=== PATIENT | male | born 1945 | race Caucasian/White ===

== ENCOUNTER → 2017-01-11 | Outpatient (CLI) | payer OTHER ==
[~2017-01-11] MED LIST: HYZ/10015 PO
[2017-01-11 09:43] LABS: BASO % 0.4 %; BASO ABS # 0.02 K/uL (0-0.2); COMPLETE YES; EOS % 2.2 %; HEMATOCRIT 46.1 % (42-52); IG% 0.2 %; LYMPH % 18.2 %; MEAN CELL VOLUME 83.5 fL (80-100); MEAN CORPUSCULAR HEMOGLOBIN 27.9 pg (25-34); MEAN CORPUSCULAR HGB CONC 33.4 g/dl (32-36); MEAN PLATELET VOLUME 10.2 fL (7.4-10.4); MONO % 8.8 %; NEUT % 70.2 %; PLATELET COUNT 203 K/uL (130-400); RED BLOOD COUNT 5.52 M/uL (4.7-6.1); WHITE BLOOD COUNT 5.48 K/uL (4.8-10.8)
[2017-01-11 10:24] LABS: ALT/SGPT 29 U/L (12-78); BLOOD UREA NITROGEN 15 mg/dl (7-18); BUN/CREATININE RATIO 11.8 (10-20); CALCIUM 9.3 mg/dl (8.5-10.1); CARBON DIOXIDE 29 mmol/L (21-32); CHLORIDE 105 mmol/L (98-107); CHOLESTEROL 158 mg/dl (0-200); GLUCOSE 84 mg/dl (70-99); POTASSIUM 3.5 mmol/L (3.5-5.1); SODIUM 141 mmol/L (136-145); TRIGLYCERIDES 52 mg/dl (0-150); VERY LOW DENSITY LIPOPROT CALC 10 mg/dl
[2017-01-11 10:29] LABS: ALKALINE PHOSPHATASE 80 U/L (45-117); AST/SGOT 17 U/L (15-37); CHOLESTEROL/HDL RATIO 3.2; HDL CHOLESTEROL 49 mg/dl; LDL CHOLESTEROL CALCULATED 99 mg/dl
== END | disposition home or self-care (01) ==
LOC: C.LAB1850 08:27
PROVIDERS: ATTEND Internal Medicine Pulmonary Disease
DX: Z00.00 Encounter for general adult medical examination without abnormal findings (principal); J30.9 Allergic rhinitis, unspecified; N40.0 Benign prostatic hyperplasia without lower urinary tract symptoms

== ENCOUNTER → 2018-02-24 | Outpatient (CLI) | payer OTHER ==
--- NOTE | 2018-02-24 09:26 | DIAGNOSTIC IMAGING REPORT ---
R HIP UNILATERAL MIN 2 VIEWS CLINICAL HISTORY: 72 years-old Male presenting with RIGHT BUTTOCK PAIN. TECHNIQUE: Frontal and frog-leg lateral views of the right hip were obtained. COMPARISON: None. FINDINGS: Right hip joint congruent. Chondrocalcinosis may be present. No acute fracture or malalignment. Visualized portion of the bony pelvis intact. No advanced degenerative change. No radiographic soft tissue abnormality. IMPRESSION: No acute osseous injury or advanced degenerative changes of the right hip. Electronically signed by: Pradeep Diez M.D. 02/24/2018 9:24 AM Dictated Date/Time: 02/24/2018 9:22 AM
--- NOTE | 2018-02-24 09:30 | DIAGNOSTIC IMAGING REPORT ---
LUMBAR SPINE 2 OR 3 VIEWS CLINICAL HISTORY: RIGHT BUTTOCK PAIN COMPARISON STUDY: None. FINDINGS: No fracture or subluxation within the lumbar spine. Mild disc space narrowing throughout the lumbar spine with small endplate osteophytes. Moderate facet osteoarthritis at L4-L5 and L5-S1. The sacrum is intact. IMPRESSION: 1. No fracture or subluxation within the lumbar spine. 2. Degenerative changes as described above. Electronically signed by: Rj Charles M.D. 02/24/2018 9:28 AM Dictated Date/Time: 02/24/2018 9:27 AM
== END | disposition home or self-care (01) ==
LOC: C.RDSM 09:10
PROVIDERS: ATTEND Internal Medicine
DX: M79.1 Myalgia (principal)

== ENCOUNTER 2020-03-21 10:06 | Observation (INO) ==
--- NOTE | 2020-03-14 15:48 | Anesthesiology Consultation ---
Date of Service March 14, 2020 Assessment & Plan (1) Visit for pre-operative examination: Chart Review Chart Review: Acceptable Risk for Surgery (pending 03/14 Covid testing ) and Patient NOT seen in Pre Admission Testing Per 03/14/20 nursing assessment, patient traveled to [place] to visit family- did not wear mask. Scheduled for Covid testing 03/17 per preop orders at [facility]. Seen by PCP 03/03/20= history of DVT January 2020- has been on AC for almost two months. He has no chest pain. He is active physically. His EKG is normal. He had a normal stress test in 2018. His blood pressure is under good control. He will need to be off of his Eliquis for 2 days prior to surgery. I will defer to his surgeon as to when anticoagulation can be restarted after surgery. He may have chronic venous insufficiency in his left lower extremity at this time. "From a general medical standpoint he is cleared for surgery." History Surgery Operation Date: 03/21/20 08:55 Proposed Procedures p Photoselective Vaporization of Prostate using Green Light Laser, - Crow Loera DO s Cystolithopaxy - Crow Loera, Height/Weight Height: 6 ft 1 in Weight: 90.718 kg Allergies Allergy/AdvReac Type Severity Reaction Status Date / Time No Known Drug Allergies Allergy Verified 03/14/20 08:34 Medications Home Medications Medication Instructions Recorded Confirmed Last Taken apixaban 5 mg tablet 5 mg PO BID #60 tab 02/15/20 03/14/20 Unknown finasteride 5 mg PO PM 03/14/20 03/14/20 Unknown losartan 100 mg PO QAM 03/14/20 03/14/20 Unknown tamsulosin 0.4 mg PO PM 03/14/20 03/14/20 Unknown Past Medical History Medical History (Updated 03/14/20 @ 15:57 by Sandee Pizarro PA-C) Acute deep vein thrombosis (DVT) of left lower extremity ON ELIQUIS> DECEMBER 2019> DUE TO SITTING ON LONG FLIGHT Amaurosis fugax Degeneration of cervical intervertebral disc Hearing loss History of BPH History of melanoma in situ REMOVED FROM HEAD 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 Hypertension Lumbar disc disease Positive PPD PT UNAWARE> DENIES HAVING THIS TEST- PER PCP NOTE- DISTANT HX OF POSITIVE PPD 1953- NEVER TREATED- NO ACTIVE DISEASE Seasonal allergies Slow to wake up after anesthesia Past Family History Family History Father Lung cancer Mother Hypertension Daughter History of kidney stones Past Surgical History Surgical History H/O colonoscopy (~2015) H/O lumbar discectomy History of tooth extraction WISDOM TEETH Hx of hernia repair S/P left knee arthroscopy X2 Social History Smoking Status: Never smoker Do You Dip or Chew Tobacco: No Hx Alcohol Use: Yes Alcohol type: beer, wine and hard liquor alcohol intake frequency: 0-2 drinks per day Alcohol Intake Frequency Comment: 1 DRINK PER DAY> TYPE VARIES Hx Substance Use: No substance use type: does not use Testing Laboratory Results Laboratory Tests 03/03/20 03/03/20 11:21 11:21 WBC 6.36 Hgb 14.5 Hct 44.8 Plt Count 202 Sodium 138 Potassium 4.0 Chloride 108 H Carbon Dioxide 27 BUN 19 H Creatinine 1.16 Glucose 111 H Electrocardiogram Date: 03/03/20 SR at 73 bpm. Chest X-Ray Date: 03/03/20 Findings: + NAD Stress Test Date: 11/07/17 Type: exercise (ECHO) Resting EF: 55 to 60% Resting LV Function: normal Valvular Disease: no significant valvular disease 11 METS achieved MPHR =99%. No ischemic EKG changes during stress. Occasional PVCs during stress. No stress-induced wall motion abnormalitiesnegative echoc ardiographic test for ischemia. LVH. Aortic root mildly dilated.
[~2020-03-21 10:06] MED LIST changes: +CIPROFLOXACIN / D5W 400 MG/200 ML BAG IV SCH; -HYZ/10015 PO; +LR 15ML/HR IV SCH
[2020-03-21] MEDS ORDERED: HYDROmorphone INJ 2 MG/ML SYR/VIAL IV PRN (11:07)
[2020-03-21] MEDS ORDERED: ONDANSETRON INJ 2 MG/ML 2 ML VIAL IV PRN (11:07)
[2020-03-21] MEDS ORDERED: ATROPINE SULFATE 0.1 MG/ML 10ML SYR IV PRN (11:07)
[2020-03-21] MEDS ORDERED: ePHEDrine sulfate 50 MG/ML AMP IV PRN (11:07)
[2020-03-21] MEDS ORDERED: MIDAZOLAM HCL 1 MG/ML 2ML VIAL ONE (11:11)
[2020-03-21] MEDS ORDERED: LIDOCAINE HCL 2% 2 ML VIAL/AMP(20MG/ML) INFIL ONE (11:11)
[2020-03-21] MEDS ORDERED: PROPOFOL IV EMULSION 10 MG/ML 20 ML VIAL IV ONE (11:11)
[2020-03-21] MEDS ORDERED: ONDANSETRON INJ 2 MG/ML 2 ML VIAL ONE (11:11)
[2020-03-21] MEDS ORDERED: fentaNYL citrate 100 MCG/2 ML VIAL ONE ×2 (11:11→12:56)
--- NOTE | 2020-03-21 11:34 | History & Physical Bridge Note ---
Date of Service March 21, 2020 History & Physical Bridge Note I have examined the patient, reviewed the History & Physical and in the interval since the performance of the History & Physical I have noted the following changes of clinical significance: no changes noted
--- NOTE | 2020-03-21 13:47 | Operative Report ---
PG Post Operative Report Pre & Post Diagnosis Operation Date: 03/21/20 11:25 Pre-Op Diagnosis: Benign Prostatic Hyperplasia, Bladder Stone Post-Op Diagnosis: Benign Prostatic Hyperplasia, Bladder Stone I identified the patient and participated in the time-out.: Yes Procedure Operation Date: 03/21/20 11:25 Actual Procedures p Photoselective Vaporization and enucleation of Prostate using Green Light Laser,(Not Applicable) - Crow Loera DO s Laser Cystolithopaxy(Not Applicable) - Crow Loera DO Surgeon Crow Loera, II, DO Plaster Machine Tender None Estimated Blood Loss 10 Findings Consistent with Post-Op Diagnosis Large Prostate with obstruction and bladder stones. Specimens Prostate adenoma. Bladder Stones Drains [address] 24Fr Catheter Anesthesia Type General Complications none Disposition Disposition: Recovery Room Indications Patient with obstruction due to prostate enlargement with bladder stones and gross hematuria. Risks and benefits discussed at length. Description of Procedure Patient was consented and brought back to the operating room. Patient was placed under anesthesia in the supine position and moved to the dorsal lithotomy position. Patient was prepped and draped in the regular sterile fashion. A time out was completed. A 30degree Cystoscope was placed into the bladder and the entire bladder was examined. The UO's were identified as well as the bladder neck, trigone, dome, and the other important landmarks. The prostatic urethra and large lobes/adenoma was assessed and the veru and bladder neck identified and area/size was assessed. The cystoscope with laser bridge and the Greenlight laser fiber were selected. Starting at the 5 and 7 o'clock positions, a channel was created from bladder neck to the veru. A channel was further formed between the two areas. No major bleeding or areas of concern. The resection then started at the 1 and 11 oclock positions and swept down to the channel. Adenoma pieces were enucleated and displaced into the bladder. All bleeding was controlled. The Specimen was removed and sent for analysis. The resection bed and any bleeding areas were fulgurated/cauterized and the entire area inspected. All bleeding was controlled. At this point, the greenlight laser was removed and the 1000 micron laser fiber was selected. There was approx 25 stones of various sizes up to 3 cm in size. These were pulverized to fragments and dust with the laser. Multiple times fragments were irrigated. These were all collected and sent for analysis. The entire area was inspected and the stone pieces were all removed. The bladder was inspected a final time. The bladder was emptied and irrigated. All specimen and debris was removed. The scope was removed with the bladder partially full. A catheter was placed and balloon elevated. This was easily irrigated. The patient was cleaned, aroused from anesthesia, and transferred to the pacu in stable condition having tolerated the procedure well with no complications. I was present and participated in all aspects of the procedure. The patient will be monitored in the PACU until transferred. I attest to the content of the Intraoperative Record and any orders documented therein. Any exceptions are noted below.
[2020-03-21] MEDS: fentaNYL citrate 100 MCG/2 ML VIAL IV PRN ×2 (14:15→14:20)
--- NOTE | 2020-03-21 15:12 | Anesthesiology Progress Note ---
Date of Service March 21, 2020 Anesthesia Post Procedure Vital Signs Vital Signs: Temp Pulse Pulse Resp BP BP Pulse Ox 03/21/20 15:05 36.5 C 62 18 168/84 H 96 03/21/20 14:45 36.1 C L 57 L 18 151/79 H 97 03/21/20 14:35 61 12 133/76 98 03/21/20 14:25 56 L 12 142/73 H 98 03/21/20 14:15 57 L 14 137/82 98 03/21/20 14:05 58 L 17 130/71 95 03/21/20 13:56 36.1 C L 65 20 117/81 97 03/21/20 10:30 36.8 C 79 20 178/95 H 99 Pain Intensity Lower Abdomen: Pain Intensity: 5 Transfer of Care Handoff Completed per policy Notes Mental Status: alert / awake / arousable and participated in evaluation Patient Amnestic to Procedure: Yes Nausea / Vomiting: adequately controlled Pain: adequately controlled Airway Patency, RR, SpO2: stable & adequate BP & HR: stable & adequate Hydration State: stable & adequate Anesthetic Complications: no major complications apparent and Pt Satisfied with anesthetic care
[2020-03-21] MEDS ORDERED: BELLADONNA/OPIUM SUPP 60 MG SUPP PR PRN (15:21)
[2020-03-21] MEDS: SODIUM CHLORIDE 0.9% 1000ML 1,000 ML IV SCH (15:37)
[2020-03-21 15:41] LABS: Basophils # (auto) 0.01 K/uL (0-0.2); Basophils % (auto) 0.2 %; Eosinophils # (auto) 0.04 K/uL (0-0.5); Eosinophils % (auto) 0.6 %; Hemoglobin 13.8 g/dL (14.0-18.0); Lymphocytes # (auto) 0.54 K/uL (1.2-3.4); Lymphocytes % (auto) 8.1 %; Mean Corpuscular Hemoglobin 27.8 pg (25-34); Mean Corpuscular Hgb Conc 32.1 g/dL (32-36); Mean Corpuscular Volume 86.5 fL (80-100); Mean Platelet Volume 9.7 fL (7.4-10.4); Monocytes # (auto) 0.33 K/uL (0.11-0.59); Neutrophils # (auto) 5.72 K/uL (1.4-6.5); Neutrophils % (auto) 86.1 %; Platelet Count 157 K/uL (130-400); RDW Coefficient of Variation 13.5 % (11.5-14.5); RDW Standard Deviation 42.9 fL (36.4-46.3); Red Blood Count 4.97 M/uL (4.7-6.1); White Blood Count 6.64 K/uL (4.8-10.8)
[2020-03-21 15:57] LABS: BUN Creatinine Ratio 16.1 (10-20); Calcium 8.8 mg/dl (8.5-10.1); Est GFR (African American) 76.5
[2020-03-21] MEDS: CEFAZOLIN 2000MG 2,000 MG/15 ML SYR IV SCH (16:46)
[2020-03-21] MEDS ORDERED: MoRPHine SULFATE 2 MG/ML CARP IV PRN (17:28)
[2020-03-21] MEDS ORDERED: OXYCODONE/APAP 7.5/325MG TAB PO PRN (17:28)
[2020-03-21] MEDS ORDERED: TAMSULOSIN HCL 0.4 MG CAP PO SCH (21:00)
[2020-03-21] MEDS ORDERED: FINASTERIDE 5 MG TAB PO SCH (21:00)
[2020-03-22] MEDS: CEFAZOLIN 2000MG 2,000 MG/15 ML SYR IV SCH ×2 (00:36→08:25)
[2020-03-22] MEDS: SODIUM CHLORIDE 0.9% 1000ML 1,000 ML IV SCH (04:12)
--- NOTE | 2020-03-22 08:53 | Urology Progress Note ---
Date of Service March 22, 2020 Assessment & Plan (1) Gross hematuria: Postop day 1 status post photo vaporization of prostate with enucleation and cystolitholapaxy for large burden of bladder stones. Patient is tolerating catheter well. Is tolerating diet. Is starting to ambulate. Will clamp CBI this morning. Plan will be to monitor. Patient is going to restart his blood thinner today. Will need to monitor closely. Also will start back all of his home medications. If patient continues to tolerate diet, increasing activity, medications, and continues to be clear without major clots or problems from the catheter we will plan to likely have patient discharge later today sometime in the afternoon. Will monitor closely. (2) Bladder stones: Subjective Postop day 1 from urologic surgery. Patient had photo vaporization of prostate with enucleation and cystolitholapaxy. Patient is on blood thinners due to an acute DVT. He is going to be restarted on them this morning. Patient has been tolerating well, but is having some pain and discomfort. Having some abdominal distension/gas pains. Has tolerated catheter. Has not had severe pain or uncontrollable pain. Patient has been ambulating. Has not had bowel movement or major change. No new nausea or vomiting. Had tolerated anesthesia without major problems Tolerated liquid diet postoperatively. Review of Systems Review of Systems: All systems reviewed & are unremarkable except as noted in HPI & below Physical Exam Physical Exam: General: Alert in no acute distress. HEENT: Normocephalic Atraumatic. Inspection normal. Cranial Nerves 2-12 Grossly intact. Normal inspection of face. Normal inspection of neck. Psychologic: Normal affect. Respiratory: Nonlabored. No use of accessory muscles. No tachypnea or dyspnea. Cardiovascular: No tachycardia Skin: [place] and Dry. No rashes or visible lesions. Extremities/Lymphatics: No edema Abdomen: Appropriately tender. Mild distended. No rebound or guarding. : Catheter in place draining clear urine with CBI on low. Results & Data Vital Signs (Past 12 Hours) Vital Signs Temp Pulse Resp BP Pulse Ox 03/22/20 07:20 36.8 C 78 16 160/74 H 94 03/22/20 03:02 36.6 C 74 16 149/71 H 94 03/21/20 23:43 36.7 C 73 16 164/79 H 93 PG Care Time/CCT Total # of Minutes Spent Total Time Spent with Patient: Total time spent is greater than 50% in coordination of care (as documented) at patient's floor/unit and/or counseling patient: Coding Level of Care Code 82981 Subseq Hosp Care Lvl 3 Diagnoses Gross hematuria R31.0 Bladder stones N21.0
[2020-03-22] MEDS ORDERED: LOSARTAN POTASSIUM 50 MG TAB PO SCH (09:00)
[2020-03-22] MEDS ORDERED: APIXABAN 5 MG TABLET PO SCH (09:00)
--- NOTE | 2020-03-23 16:16 | Discharge Summary ---
Date of Service March 23, 2020 Admission HPI Per Admitting Provider See H&P Admission Exam Per Admitting Provider See H&P Principal Diagnosis BPH with Gross hematuria and bladder stones. Discharge Exam General: Alert in no acute distress. HEENT: Normocephalic Atraumatic. Inspection normal. Psychologic: Normal affect. Skin: [place] and Dry. No rashes or visible lesions. Abdomen: Soft Non-distended. No rebound or guarding. Discharge Data Allergies Allergy/AdvReac Type Severity Reaction Status Date / Time No Known Drug Allergies Allergy Verified 03/21/20 10:21 Procedures Performed Operation Date: 03/21/20 11:25 Actual Procedures p Photoselective Vaporization of Prostate using Green Light Laser,(Not Applicable) - Crow Loera DO s Cystolithopaxy(Not Applicable) - Crow Loera, Hospital Course (1) Gross hematuria: Postop day 1 status post photo vaporization of prostate with enucleation and cystolitholapaxy for large burden of bladder stones. Patient is tolerating catheter well. Is tolerating diet. Is starting to ambulate. Will clamp CBI this morning. Plan will be to monitor. Patient is going to restart his blood thinner today. Will need to monitor closely. Also will start back all of his home medications. If patient continues to tolerate diet, increasing activity, medications, and continues to be clear without major clots or problems from the catheter we will plan to likely have patient discharge later today sometime in the afternoon. Will monitor closely. (2) Bladder stones: Total Time Total Time Spent Total Time Spent (In Minutes): 10 minutes Total Time Includes: Examination of the Patient, Discharge Planning, Medication Reconciliation and Communication With Other Providers Discharge Plan Discharge Items Patient Disposition: Home - Self-Care Reason For Visit: Benign Prostatic Hyperplasia, Bladder Stone Discharge Diagnosis: Same Activity: Resume your previous activity Lifting: No more than 50 pounds Non-emergency contact: Urologist Call non-emergency contact if: you have any medication questions, your symptoms worsen, your pain is not controlled, your pain is worsening, your pain is unus ual for you, your pain is concerning for you, you have a fever and your temperature is above 101.5 Follow-up/Referrals: Sumit Galan MD [Primary Care Provider] - Diet: Regular Addtl Attending Provider Instructions: Home with catheter. Office will call with followup. May have blood intermittently in urine. Call for any fevers or chills. Pending Studies at Discharge: No Stand-Alone Forms: My [facility], Smoking Cessation Medications and DC Order Prescriptions: New ciprofloxacin HCl [Cipro] 500 mg tablet 500 mg PO Q12H Qty: 6 RF: 0 oxycodone-acetaminophen [Percocet] 7.5-325 mg tablet 1 tab PO Q8H PRN (Reason: pain) Qty: 7 RF: 0 Continued Eliquis 5 mg tablet 5 mg PO BID Qty: 60 RF: 4 tamsulosin 0.4 mg capsule 0.4 mg PO PM RF: 0 losartan 100 mg tablet 100 mg PO QAM RF: 0 finasteride 5 mg tablet 5 mg PO PM RF: 0 Discharge Orders: Discharge Order (Routine); Ordered 03/22/20 Ordered By: Crow Wheeler/Other Patient Handouts: Discharge Instructions Caring for Your Leg Bag Admission Data Admit Date/Time: 03/21/20 14:08 Attending Provider: Crow Loera Admit Provider: Crow Loera Primary Care Provider: Sumit Galan Other Interventions: Discharge Summary Assessment (RN) Last Done: 03/22/20 16:12 DC Date/Time DO NOT enter until pt leaves facility: 03/22/20 17:00 Coding Level of Care Code D/C Day Management <30 mins Diagnoses Gross hematuria R31.0 Bladder stones N21.0
[2020-03-27 14:45] LABS: Component 2 DNR; Source BLADDER STONE
== END 2020-03-22 17:00 | disposition home or self-care (01) ==
LOC: ASU 10:06 → 3N 10:06

== ENCOUNTER 2021-04-20 12:02 | Observation (INO) ==
--- NOTE | 2021-03-24 15:57 | PAT Medication Instructions ---
Medication Instructions Date of Service March 24, 2021 Home Medications Medication Instructions Recorded losartan 100 mg tablet See Rx Instructions .ROUTE 04/19/20 .COMPLEX #90 tablet apixaban 5 mg tablet 5 mg PO BID #60 tab 03/22/21 losartan 100 mg tablet 1 tab DAILY apixaban 5 mg tablet 5 mg PO BID ASK your prescriber and surgeon apixaban 5 mg tablet 5 mg PO BID DO NOT take the morning of surgery losartan 100 mg tablet 1 tab DAILY NOTHING TO EAT OR DRINK AFTER MIDNIGHT. Other Notes If you have any questions please call us at [phone] or [phone] or [phone] or [phone]
--- NOTE | 2021-03-27 10:36 | Anesthesiology Consultation ---
Date of Service March 27, 2021 Assessment & Plan (1) Encounter for pre-operative examination: COVID Status: As of 03/27 assessment, patient denies travel to endemic area, known exposure/sick contacts, or symptoms of COVID19. Patient advised to adhere to social distancing guidelines, wear a mask in public and avoid large crowds or unnecessary travel in the 2 weeks leading up to surgery. Preoperative COVID19 testing to be completed prior to surgery per surgeon's arrangements. Pat ient encouraged to be extra cautious/conscientious with COVID precautions between COVID testing and surgery. Eliquis instructions per prescriber and surgeon. Chart Review Chart Review: Acceptable Risk for Surgery and Patient seen in Pre Admission Testing Teaching & Discussion Instructed NPO after midnight before surgery, except medications with 15 cc of water. Medication instructions provided according to the PAT guidelines. History Surgery Operation Date: 04/20/21 07:30 Proposed Procedures p Transurethral Resection Prostate - Crow Loera, Height/Weight Height: 6 ft 0.5 in Weight: 89.811 kg Allergies Allergy/AdvReac Type Severity Reaction Status Date / Time No Known Drug Allergies Allergy Verified 03/23/21 08:45 Medications Home Medications Medication Instructions Recorded Confirmed Last Taken losartan 100 mg tablet See Rx Instructions .ROUTE 04/19/20 03/23/21 Unknown .COMPLEX #90 tablet apixaban 5 mg tablet 5 mg PO BID #60 tab 03/22/21 03/23/21 Unknown Past Medical History Medical History Acute deep vein thrombosis (DVT) of left lower extremity ON ELIQUIS> DECEMBER 2019> DUE TO SITTING ON LONG FLIGHT PT STATES RECENLTY PUT BACK ON ELIQUIS D/T LEG PAIN/SWELLING AND ULTRASOUND CONFIRMED>FEBRUARY 2021 Degeneration of cervical intervertebral disc Hearing loss History of bladder stone History of BPH History of melanoma in situ REMOVED FROM HEAD 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 Hypertension Lumbar disc disease Positive PPD PT UNAWARE> DENIES HAVING THIS TEST- PER PCP NOTE- DISTANT HX OF POSITIVE PPD 1953- NEVER TREATED- NO ACTIVE DISEASE Seasonal allergies Exercise / Class Metabolic Activity II 4-5 Yardwork/Stairs/Walk up hill Past Family History Family History Father Lung cancer Mother Hypertension Daughter History of kidney stones Other No family history of adverse response to anesthesia Past Surgical History Surgical History H/O colonoscopy (~2015) H/O lumbar discectomy History of arthroscopy RT/LEFT KNEE History of cystoscopy Green Light Laser of prostate/bladder stone removal Hx of hernia repair INGUINAL Slow to wake up after anesthesia [place] teeth removed Past Anesthesia History No Hx of Anesthesia Complications and No Family Hx of Anesthesia Complications Pt reports being 'slow to wake' but denies unanticipated admission or reintubation. History of PONV No Hx of PONV and No Hx of Motion Sickness (but has had vertigo) Social History Smoking Status: Never smoker Do You Dip or Chew Tobacco: No Hx Alcohol Use: Yes Alcohol type: beer and wine alcohol intake frequency: a few times a week substance use type: does not use Review of Systems Pt denies any recent chest pain, shortness of breath, palpitations, cough, fever, URI, or uncontrolled acid reflux. Physical Exam Vital Signs BP: 143/73 P: 77bpm SPO2: 96% RA T: 97.8 F R: 16 ENMT Mouth: + dental restorations (few crowns); no chipped teeth and no loose teeth Thyromental Distance: < 3.5 Finger Breadths (3) Mallampati Class: I Neck normal visual inspection and + limited neck extension Respiratory normal respiratory effort, lungs clear to auscultation Cardiovascular RRR, no murmur, no edema Vessels: no carotid bruit Lab Results Anesthesia Preop Results Results Anesthesia Widget: WBC 4.88 K/uL (4.8-10.8) 03/27/21 Hgb 16.0 g/dL (14.0-18.0) 03/27/21 Hct 48.6 % (42-52) 03/27/21 Plt 203 K/uL (130-400) 03/27/21 Na 139 mmol/L (136-145) 03/27/21 K 3.7 mmol/L (3.5-5.1) 03/27/21 Cl 105 mmol/L (98-107) 03/27/21 CO2 30 mmol/L (21-32) 03/27/21 BUN 16 mg/dl (7-18) 03/27/21 Creat 1.28 mg/dl (0.6-1.4) 03/27/21 Glucose Level 109 mg/dl (70-99) H 03/27/21 Urine Color Yellow 03/27/21 Urine Appearance Clear (Clear) 03/27/21 Urine pH 5.0 (4.5-7.5) 03/27/21 Urine Specific [place] 1.010 (1.000-1.030) 03/27/21 Urine Protein Negative (Negative) 03/27/21 Urine Glucose (UA) Negative (Negative) 03/27/21 Urine Ketones Negative (Negative) 03/27/21 Urine Blood Negative (Negative) 03/27/21 Urine Nitrite Negative (Negative) 03/27/21 Urine Bilirubin Negative (Negative) 03/27/21 Urine Urobilinogen Negative (Negative) 03/27/21 Urine Leukocyte Esterase Negative (Negative) 03/27/21 Testing Electrocardiogram Date: 03/27/21 Findings: + NSR @ (68bpm) Nonspecific ST abnormality. Compared with EKG of 07/25/2007, no significant change was found. Chest X-Ray Date: 01/23/21 Findings: + NAD Stress Test Date: 11/07/17 Resting EF: 55-60% Normal LV size. Wall thickness is consistent with LVH. LV has normal systolic function. Normal RV size and function. The left atrium is normal. Mildly dilated aortic root. The ascending aorta is dilated at 4.3 cm. Normal diastolic function. Maximal stress test. No stress-induced chest pain. Negative EKG test for ischemia. There were stress-induced arrhythmias as described above (occ PVCs). LV global systolic function response to stress was normal. There was no stress-induced wall motion abnormality. This is a negative stress EKG/echocardiographic test for ischemia which would predict a low perioperative cardiac risk. Cervical Spine Date: 01/23/21 IMPRESSION: 1. No acute bony abnormality is seen involving the cervical spine. 2. Osteopenia and spondylotic change as above.
[~2021-04-20 12:02] MED LIST changes: -CIPROFLOXACIN / D5W 400 MG/200 ML BAG IV SCH; +ceFAZolin 2000MG 2,000 MG/15 ML SYR IV SCH
--- NOTE | 2021-04-20 14:17 | History & Physical Report ---
Date of Service April 20, 2021 Assessment & Plan (1) Enlarged prostate without lower urinary tract symptoms (luts): Plan: Bladder outlet obstruction. Risks and benefits discussed at length for procedure. These include bleeding, infection, injury to surrounding tissues or organs, and risks associated with anesthesia. Patient states understanding and agrees to proceed. Will sign consent and proceed. Plan for transurethral resection of prostate. Patient had DVT approx 2 months ago. Plan for minimal resection to remove obstruction. May need observation post op due to anticoagulation. History of Present Illness Primary Care Provider: Sumit Galan MD Patient here for procedure. No changes in medical issues. No major changes in urinary issues. Continued issues and concerns. No change in pain or discomfort. No severe fevers or chills. No chest pain or shortness of breath. Risks and benefits discussed at length for procedure. These include bleeding, infection, injury to surrounding tissues or organs, and risks associated with anesthesia. Patient and/or family states understanding and agrees to proceed. Consent and supporting information completed. Allergies Allergy/AdvReac Type Severity Reaction Status Date / Time No Known Drug Allergies Allergy Verified 04/20/21 12:27 Home Medications Medication Instructions Recorded Confirmed Type apixaban 5 mg tablet (Eliquis) 5 mg PO BID #60 tab 03/22/21 04/20/21 Rx losartan 100 mg tablet (Cozaar) 100 mg PO DAILY 04/20/21 04/20/21 History Past Med/Surg History Medical History Acute deep vein thrombosis (DVT) of left lower extremity ON ELIQUIS> DECEMBER 2019> DUE TO SITTING ON LONG FLIGHT PT STATES RECENLTY PUT BACK ON ELIQUIS D/T LEG PAIN/SWELLING AND ULTRASOUND CONFIRMED>FEBRUARY 2021 Degeneration of cervical intervertebral disc Hearing loss History of bladder stone History of BPH History of melanoma in situ REMOVED FROM HEAD 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 Hypertension Lumbar disc disease Positive PPD PT UNAWARE> DENIES HAVING THIS TEST- PER PCP NOTE- DISTANT HX OF POSITIVE PPD 1953- NEVER TREATED- NO ACTIVE DISEASE Seasonal allergies Surgical History H/O colonoscopy (~2015) H/O lumbar discectomy History of arthroscopy RT/LEFT KNEE History of cystoscopy [place] [facility] of prostate/bladder stone removal Hx of hernia repair INGUINAL Slow to wake up after anesthesia [place] teeth removed Family History Father Lung cancer Mother Hypertension Daughter History of kidney stones Other No family history of adverse response to anesthesia Social History Smoking Status: Never smoker Second Hand Exposure: No; Do You Dip or Chew Tobacco: No; Hx Alcohol Use: Yes Alcohol type: beer and wine Preferred Language: Turkish Communication Ability: Effective Ophthalmic Surgeon Required: No Beliefs That Will Affect Care: None marital status: Current Living Situation: Spouse current occupational status: retired Feels Safe at Home: Yes Safety Concerns: Feels Safe At This Time Assistive Devices: Glasses and Hearing Aid - Bilateral Review of Systems All systems reviewed & are unremarkable except as noted in HPI & below Physical Exam Physical Exam: General: Alert/Arousable. No Acute illness. . HEENT: Inspection normal. Normal inspection of face. Normal inspection of neck. Psychologic: Normal affect/No change in mentation. Respiratory: No use of accessory muscles. No respiratory changes or exacerbation or changes with tachypnea or dyspnea. Cardiovascular: No tachycardia Skin: [place] and Dry. No new rashes or visible lesions. Abdomen: Normal inspection. No guarding. Results & Data ([facility]) Vital Signs (Past 12 Hours) Vital Signs Temp Pulse Resp BP Pulse Ox 04/20/21 12:34 36.7 C 62 18 187/96 H 98 PG Care Time/CCT Total # of Minutes Spent Total Time Spent with Patient: Total time spent is greater than 50% in coordination of care (as documented) at patient's floor/unit and/or counseling patient: Coding Level of Care Code None Diagnoses Enlarged prostate without lower urinary tract symptoms (luts) N40.0
[2021-04-20] MEDS ORDERED: HYDROmorphone INJ 1 MG/ML SYRINGE IV PRN (14:36)
[2021-04-20] MEDS ORDERED: ATROPINE SULFATE 0.1 MG/ML 10ML SYR IV PRN (14:36)
[2021-04-20] MEDS ORDERED: PHENYLEPHRINE 100MCG/ML 5ML SYR IV PRN (14:36)
[2021-04-20] MEDS ORDERED: fentaNYL citrate 100 MCG/2 ML VIAL IV PRN (14:36)
[2021-04-20] MEDS ORDERED: ePHEDrine sulfate 50 MG/ML AMP IV PRN (14:36)
[2021-04-20] MEDS ORDERED: LABETALOL HCL IV 5 MG/ML 20ML IV PRN (14:36)
[2021-04-20] MEDS ORDERED: MEPERIDINE HCL 25 MG/ML CARP/VIAL IV PRN (14:36)
[2021-04-20] MEDS ORDERED: ONDANSETRON INJ 2 MG/ML 2 ML VIAL IV PRN ×2 (14:36→16:34)
[2021-04-20] MEDS ORDERED: PROPOFOL IV EMULSION 10 MG/ML 20 ML VIAL IV ONE ×4 (14:50→16:14)
[2021-04-20] MEDS ORDERED: LIDOCAINE 2% 2 ML VIAL/AMP(20MG/ML) INFIL ONE ×2 (14:50→15:21)
[2021-04-20] MEDS ORDERED: fentaNYL citrate 100 MCG/2 ML VIAL ONE (14:50)
[2021-04-20] MEDS ORDERED: BELLADONNA/OPIUM SUPP 60 MG SUPP PR ONE ×2 (15:49→15:55)
[2021-04-20] MEDS ORDERED: LABETALOL HCL IV 5 MG/ML 20ML IV ONE (16:11)
[2021-04-20] MEDS ORDERED: MoRPHine SULFATE 2 MG/ML CARP IV PRN (16:34)
[2021-04-20] MEDS ORDERED: BELLADONNA/OPIUM SUPP 60 MG SUPP PR PRN (16:34)
[2021-04-20] MEDS ORDERED: oxyCODONE/ACETAMINOPHEN 5mg/325mg TAB PO PRN (16:34)
--- NOTE | 2021-04-20 16:34 | Operative Report ---
PG Post Operative Report Pre & Post Diagnosis Bladder outlet obstruction Same Operation Date: 04/20/21 13:30 <No data on this case meets the specified criteria> I identified the patient and participated in the time-out.: Yes Procedure Transurethral resection of prostate Operation Date: 04/20/21 13:30 <No data on this case meets the specified criteria> Surgeon Crow Loera, II, DO Natural Science Manager None Estimated Blood Loss 10 Findings Consistent with Post-Op Diagnosis Large regrowth of Prostate with obstruction of bladder neck. Specimens Prostate adenoma. Drains 24Fr 3way Catheter Anesthesia Type General Complications none Disposition Disposition: Recovery Room Indications Patient with obstruction due to prostate enlargement. Risks and benefits discussed at length. Description of Procedure Patient was consented and brought back to the operating room. Patient was placed under anesthesia in the supine position and moved to the dorsal lithotomy po sition. Patient was prepped and draped in the regular sterile fashion. A time out was completed. A 30degree Cystoscope was placed into the bladder and the entire bladder was examined. The UO's were identified as well as the bladder neck, trigone, dome, and the other important landmarks. The prostatic urethra and large lobes/adenoma was assessed and the veru and bladder neck identified and are a/size was assessed. The regrowth caused considerable obstruction at the bladder neck especially at the left lateral lobe. The resection scope was placed and the fine bipolar loop was selected. Starting at the 5 and 7 o'clock positions, a channel was created from bladder neck to the veru. There right and left lateral lobes were then resected. A majority of tissue was at the bladder neck and the left lateral lobe. The Specimen was removed and sent for analysis. The resection bed and any bleeding areas were fulgurated/cauterized and the entire area inspected. All bleeding was controlled. The bladder was inspected a final time. The bladder was emptied and irrigated. All specimen and debris was removed. The scope was removed with the bladder partially full. A catheter was placed and balloon elevated. This was easily irrigated. Continuous bladder irrigation was started. The patient was cleaned, aroused from anesthesia, and transferred to the pacu in stable condition having tolerated the procedure well with no complications. I was present and participated in all aspects of the procedure. The patient will be monitored in the PACU until transferred. Plan to maintain catheter for 1 week. Pathology in 2-3 weeks. I attest to the content of the Intraoperative Record and any orders documented therein. Any exceptions are noted below.
[2021-04-20] MEDS ORDERED: GLYCOPYRROLATE 0.2 MG/ML VIAL ONE (17:21)
[2021-04-20] MEDS ORDERED: GLYCOPYRROLATE 0.2 MG/ML VIAL IV ONE ×2 (17:22→17:29)
--- NOTE | 2021-04-20 17:39 | Anesthesiology Progress Note ---
Date of Service April 20, 2021 Anesthesia Post Procedure Vital Signs Vital Signs: Temp Pulse Pulse Resp BP Pulse Ox 04/20/21 17:25 55 L 16 119/67 94 04/20/21 17:15 36.4 C L 48 L 20 117/53 L 95 04/20/21 17:05 53 L 16 142/75 H 98 04/20/21 16:58 35.6 C L 60 20 138/85 98 04/20/21 12:34 36.7 C 62 18 187/96 H 98 Transfer of Care Handoff Completed per policy Notes Mental Status: alert / awake / arousable Patient Amnestic to Procedure: Yes Nausea / Vomiting: adequately controlled Pain: adequately controlled Airway Patency, RR, SpO2: stable & adequate BP & HR: stable & adequate Hydration State: stable & adequate Anesthetic Complications: no major complications apparent and Pt Satisfied with anesthetic care Notes: The patient is awake and comfortable. He tolerated the procedure under MAC sedation. In the PACU his HR dropped to the 40 so he was treated with glycopyrrolate which brought it to the 50s. His other vital signs are stable. The patient will be monitored overnight in the hospital for bleeding from the procedure site. Dr. Loera will restart the patient's anticoagulation when the surgical bleeding risk is low.
[2021-04-20] MEDS: SODIUM CHLORIDE 0.9% 1000ML 1,000 ML IV SCH (18:08)
[2021-04-20 18:19] LABS: Basophils # (auto) 0.01 K/uL (0-0.2); Basophils % (auto) 0.2 %; Eosinophils # (auto) 0.09 K/uL (0-0.5); Eosinophils % (auto) 1.6 %; Hematocrit (blood only) 44.2 % (42-52); Hemoglobin 14.4 g/dL (14.0-18.0); Immature Granulocytes # (auto) 0.01 K/uL (0.00-0.02); Immature Granulocytes % (auto) 0.2 %; Lymphocytes # (auto) 0.91 K/uL (1.2-3.4); Lymphocytes % (auto) 16.5 %; Mean Corpuscular Hemoglobin 28.4 pg (25-34); Mean Corpuscular Hgb Conc 32.6 g/dL (32-36); Mean Corpuscular Volume 87.2 fL (80-100); Mean Platelet Volume 9.8 fL (7.4-10.4); Monocytes # (auto) 0.36 K/uL (0.11-0.59); Monocytes % (auto) 6.5 %; Neutrophils # (auto) 4.13 K/uL (1.4-6.5); Platelet Count 156 K/uL (130-400); RDW Coefficient of Variation 13.4 % (11.5-14.5); RDW Standard Deviation 42.8 fL (36.4-46.3); Red Blood Count 5.07 M/uL (4.7-6.1); White Blood Count 5.51 K/uL (4.8-10.8)
[2021-04-20] MEDS ORDERED: PNEUMOCOCCAL POLYSACCHARIDES 25 MCG/0.5 ML VIAL/SYR IM ONE (18:27)
[2021-04-20 18:36] LABS: BUN Creatinine Ratio 16.2 (10-20); Calcium 8.6 mg/dl (8.5-10.1); Creatinine Clr Calc Pharmacy 65.4 ml/min; Est GFR (African American) 75.1 ml/min; Est GFR (Non-African American) 64.8 ml/min; Potassium 3.8 mmol/L (3.5-5.1)
[2021-04-20] MEDS: HEPARIN SOD 5,000 UNIT/0.5 ML VIAL SQ SCH (21:09)
[2021-04-20] MEDS: DOCUSATE SODIUM 100 MG CAP PO SCH (21:09)
[2021-04-20] MEDS: ceFAZolin 2000MG 2,000 MG/15 ML SYR IV SCH (22:32)
[2021-04-21] MEDS: HEPARIN SOD 5,000 UNIT/0.5 ML VIAL SQ SCH ×2 (06:26→13:06)
[2021-04-21] MEDS: SODIUM CHLORIDE 0.9% 1000ML 1,000 ML IV SCH (06:26)
[2021-04-21] MEDS: ceFAZolin 2000MG 2,000 MG/15 ML SYR IV SCH (06:30)
[2021-04-21] MEDS: DOCUSATE SODIUM 100 MG CAP PO SCH (08:24)
--- NOTE | 2021-04-21 08:24 | Urology Progress Note ---
Date of Service April 21, 2021 Assessment & Plan (1) Bladder outlet obstruction: Plan: - Postop day #1 status post transurethral resection of the prostate with Dr. Loera. - Patient doing well, progressing as expected. - Afebrile, VSS. - Labs reviewed, Wbc and creatinine from yesterday were normal- Will recheck labs this morning - CBI clamped this morning - Will continue to monitor - Maintain jennings catheter - Encourage ambulation - Will reassess this afternoon, likely home later today if he continues to progress. - Pt reassessed this afternoon. - Doing well, eager to go home. - Labs reviewed, Wbc and creatinine stable. Hgb 15. - No complaints of pain. - Tolerating diet, no nausea or vomiting. - Expected clinical course reviewed with patient, all questions were answered. - Postoperative follow-up appointments in place. - Stable for discharge - Home with jennings catheter. Admission and Anticipated Discharge Date Admission Date: April 20, 2021 Subjective Pt examined at bedside this morning. Awake, resting comfortably in bed on arrival. He denies back, flank, and suprapubic pain. No fevers or chills. Tolerating PO diet, no nausea or vomiting. Jennings catheter intact with CBI running slowly. No hematuria or dysuria. Pt is eager to go home today. Review of Systems Constitutional: as per Subjective / HPI Gastrointestinal: as per Subjective / HPI Genitourinary: + as per Subjective / HPI Physical Exam Constitutional: well developed and well nourished; no acute distress and not ill appearing Respiratory: normal respiratory effort; no labored breathing and no audible wheezes Gastrointestinal (Abdomen): Percussion/Palpation: abdomen soft; abdomen nontender and no guarding Neurologic: awake Psychiatric: Orientation: alert, oriented x 3 and cooperative Genitourinary: Jennings catheter intact with CBI Results & Data ([facility]) Vital Signs (Past 12 Hours) Vital Signs Temp Pulse Pulse Resp BP Pulse Ox 04/21/21 08:08 36.8 C 60 20 143/79 H 98 04/21/21 07:47 59 L 04/21/21 04:41 139/72 04/21/21 03:39 36.4 C L 60 18 172/92 H 96 04/21/21 00:04 36.3 C L 59 L 18 166/84 H 96 04/20/21 22:52 62 07/15/21 21:00 36.4 C L 64 18 159/83 H 95 PG Care Time/CCT Total # of Minutes Spent Total Time Spent with Patient: Total time spent is greater than 50% in cost coordinator rdination of care (as documented) at patient's floor/unit and/or counseling patient: Coding Level of Care Code 33079 Subseq Hosp Care Lvl 2 Diagnoses Bladder outlet obstruction N32.0
[2021-04-21] MEDS ORDERED: LOSARTAN POTASSIUM 50 MG TAB PO SCH (09:00)
[2021-04-21 09:39] LABS: Basophils # (auto) 0.01 K/uL (0-0.2); Basophils % (auto) 0.2 %; Eosinophils # (auto) 0.06 K/uL (0-0.5); Eosinophils % (auto) 0.9 %; Hematocrit (blood only) 46.1 % (42-52); Immature Granulocytes # (auto) 0.01 K/uL (0.00-0.02); Immature Granulocytes % (auto) 0.2 %; Lymphocytes # (auto) 0.82 K/uL (1.2-3.4); Lymphocytes % (auto) 12.8 %; Mean Corpuscular Hemoglobin 28.2 pg (25-34); Mean Corpuscular Hgb Conc 32.5 g/dL (32-36); Mean Corpuscular Volume 86.7 fL (80-100); Mean Platelet Volume 10.1 fL (7.4-10.4); Monocytes # (auto) 0.36 K/uL (0.11-0.59); Monocytes % (auto) 5.6 %; Neutrophils # (auto) 5.13 K/uL (1.4-6.5); Neutrophils % (auto) 80.3 %; Platelet Count 165 K/uL (130-400); RDW Coefficient of Variation 13.5 % (11.5-14.5); RDW Standard Deviation 42.8 fL (36.4-46.3); Red Blood Count 5.32 M/uL (4.7-6.1); White Blood Count 6.39 K/uL (4.8-10.8)
[2021-04-21 10:10] LABS: BUN Creatinine Ratio 13.1 (10-20); Calcium 8.8 mg/dl (8.5-10.1); Creatinine Clr Calc Pharmacy 60.6 ml/min; Est GFR (African American) 68.4 ml/min; Potassium 3.6 mmol/L (3.5-5.1)
== END 2021-04-21 14:48 | disposition home or self-care (01) ==
LOC: 2N 12:02 → ASU 12:02